=== PATIENT | male | born 1975 | race Caucasian/White ===

== ENCOUNTER 2020-10-18 14:39 | Emergency (ER) | payer SELFPAY ==
[~2020-10-18] VITALS: Ht 167.6 cm; Wt 80.7 kg
--- NOTE | 2020-10-18 14:57 | NUR ---
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
[2020-10-18] MEDS ORDERED: IV NS 0.9% 1,000 ML BAG IV ONE ×2 (15:30→17:00)
--- NOTE | 2020-10-18 15:32 | NUR ---
TELLER AT BEDSIDE
--- NOTE | 2020-10-18 15:55 | NUR ---
LAB AT BEDSIDE
[2020-10-18 16:02] LABS: BASOPHILS # (AUTO) 0.1 K/uL (0.0-0.2); BASOPHILS % (AUTO) 0.8 % (0.0-2.0); EOSINOPHILS % (AUTO) 1.2 % (0.0-6.0); HEMATOCRIT 42 % (39-51); HEMOGLOBIN 14.1 g/dL (13.5-17.5); LYMPHOCYTES # (AUTO) 1.3 K/uL (0.8-4.8); MEAN CORPUSCULAR HGB CONC 34 g/dl (31.0-36.0); MEAN CORPUSCULAR VOLUME 93 fL (80-96); MONOCYTES # (AUTO) 0.6 K/uL (0.1-1.30); MONOCYTES % (AUTO) 6.5 % (2.0-12.0); NEUTROPHILS # (AUTO) 7.9 K/uL (1.8-8.9); NEUTROPHILS % (AUTO) 78.5 % (43.0-81.0); PLATELET COUNT (AUTO) 307 K/uL (150-450); RED BLOOD CELL COUNT(AUTO) 4.54 MIL/uL (4.5-6.0)
[2020-10-18 16:23] LABS: ALBUMIN 4.1 g/dL (3.4-5.0); BILIRUBIN,DIRECT 0.1 mg/dL (0.0-0.2); BILIRUBIN,TOTAL 0.3 mg/dL (0.2-1.0); CALCIUM, SERUM 8.7 mg/dL (8.5-10.1); POTASSIUM 3.7 mmol/L (3.5-5.1); TOTAL PROTEIN, SERUM 7.4 g/dL (6.4-8.2)
--- NOTE | 2020-10-18 16:23 | NUR ---
URINE COLLECTED AND SENT TO LAB
[2020-10-18 16:29] LABS: BILIRUBIN,URINE MODERATE (NEGATIVE); COLOR,URINE YELLOW (YELLOW); LEUKOCYTE ESTERASE ,URINE Negative (NEGATIVE); NITRITE, URINE Negative (NEGATIVE); PH,URINE 5.5 (5.0-8.0); PROTEIN,URINE 100 mg/dl (NEGATIVE); UGLUCOSE Negative (NEGATIVE); UROBILINOGEN,URINE 0.2 EU/dL (0.2)
[2020-10-18 16:38] LABS: BACTERIA,URINE Rare /HPF (None Seen); RBC,URINE NONE SEEN /HPF (0-2); SQUAMOUS EPITHELIAL CELL,UR Few /HPF (None Seen); WBC,URINE NONE SEEN /HPF (0-3)
[2020-10-18 17:59] LABS: CALCIUM, SERUM 8.5 mg/dL (8.5-10.1); CREATININE 1.6 mg/dL (0.6-1.3)
--- NOTE | 2020-10-18 18:10 | NUR ---
FEELING MUCH BETTER, NO C/O DIZZINESS, PT IS CLEARED. IV LINE DISCONTINUED. DISCHARGE HOME IN STABLE CONDITION.
[2020-10-18 18:12] VITALS: BP 105/70
== END 2020-10-18 18:12 | disposition home or self-care (01) ==
LOC: ER 14:50
DX: R55 Syncope and collapse (principal); N17.9 Acute kidney failure, unspecified; E86.0 Dehydration; E03.9 Hypothyroidism, unspecified
CPT/HCPCS: 36415; 71045; 80048 ×2; 80076; 81001; 85025; 85730; 93005; 96360; 96361; 99285; J7030 ×2